=== PATIENT | female | born 1960 | race Caucasian/White ===

== ENCOUNTER 2019-11-09 12:41 | Observation (INO) | payer BC, SELFPAY ==
[~2019-11-09 12:41] MED LIST: Iopamidol-370 76% 500 ML 1 ML ONE
[2019-11-09 12:56] LABS: #Basophils 0.1 thou/uL (0.0-0.2); #Eosinphils 0.1 thou/uL (0.0-0.7); #Lymphocytes 2.1 thou/uL (1.20-3.40); #Monocytes 0.5 thou/uL (0.11-0.59); #Neutrophils 2.6 thou/uL (1.40-6.50); %Basophils 2.6 % (0.0-1.0); %Eosinophils 1.6 % (0.0-10.0); %Lymphocytes 38.9 % (21.0-51.0); %Monocytes 8.4 % (0.0-10.0); %Neutrophils 48.5 % (42.0-75.0); Hemoglobin 14.9 g/dL (12.0-16.0); Mean Corpuscular HGB CONC 31.4 g/dL (32.0-36.0); Mean Corpuscular Hemoglobin 29.2 pg (27.0-31.0); Mean Corpuscular Volume 92.8 fL (78.0-98.0); Mean Platelet Volume 7.4 fL (7.4-10.4); Platelet Count 272 thou/uL (130-400); RBC Distribution Width 12.2 % (11.5-14.5); Red Blood Cell (RBC) Count 5.12 mill/uL (4.20-5.40); White Blood Cell (WBC) Count 5.4 thou/uL (4.8-10.8)
[2019-11-09] MEDS ORDERED: Lorazepam 2 MG/ML VIAL ONE (13:08)
--- NOTE | 2019-11-09 13:08 | CT ---
BRAIN CT WITHOUT IV CONTRAST: History: Confusion, stroke alert. FINDINGS: No focal mass or midline shift. No intra or extraaxial hemorrhage. Sinuses and mastoids are clear. IMPRESSION: No acute intracranial process. No mass or bleed. Findings discussed with Dr. Blas in the Emergency Department at 12:51 p.m. Code CR
[2019-11-09 13:09] LABS: INR-International Normal Ratio 0.9; Prothrombin Time 12.1 sec (12.0-14.7)
[2019-11-09 13:10] LABS: PTT 28.1 sec (22.9-36.1)
--- NOTE | 2019-11-09 13:11 | RAD ---
Chest one view HISTORY: Altered mental status. Dyspnea. FINDINGS: No comparison. Cardiac silhouette is magnified by projection. Pulmonary vasculature is unre markable. Oval density at the right hilum has the appearance of the pulmonary artery. No lobar consolidation or evidence of pneumothorax. IMPRESSION : No active cardiopulmonary abnormalities are demonstrated.
[2019-11-09 13:12] LABS: ALT (SGPT) 17 U/L (8-55); AST (SGOT) 25 U/L (5-34); Albumin 4.6 g/dL (3.5-5.0); Alkaline Phosphatase 94 U/L (40-110); Anion Gap 17 mmol/L (10-20); BUN (Urea Nitrogen) 16 mg/dL (9.8-20.1); Bilirubin, Total 0.4 mg/dL (0.2-1.2); CK (CPK) 79 U/L (29-168); Calc. Creatinine Clearance 0 mL/min (70-130); Calcium 10.2 mg/dL (7.8-10.44); Carbon Dioxide 21 mmol/L (22-29); Chloride 105 mmol/L (98-107); Estimated GFR-MDRD 70; Globulin 3.1 g/dL (2.4-3.5); Glucose 103 mg/dL (70-105); Lipase 59 U/L (8-78); Potassium 3.9 mmol/L (3.5-5.1); Protein, Total 7.7 g/dL (6.0-8.3); Sodium 139 mmol/L (136-145)
--- NOTE | 2019-11-09 13:16 | CT ---
CT ANGIOGRAM HEAD WITH 3D RENDERING CT ANGIOGRAM NECK WITH 3D RENDERING: History: Confusion. Stroke alert. FINDINGS: CT ANGIOGRAM HEAD WITH 3D RENDERING: There is no evidence for major branch occlusion. The M1 segments are normal bilaterally. Intracranial vertebral basilar arteries are unremarkable. No evidence for intracranial aneurysm. IMPRESSION: Unremarkable head CTA. No major branch occlusion. No M1 segment occlusion. CT ANGIOGRAM NECK WITH 3D RENDERING: The origins of the right and left common carotid arteries and vertebral arteries are unremarkable. No evidence for any significant stenosis. The bifurcation regions and internal carotid arteries are unr emarkable bilaterally. Visualized soft tissue neck appears unremarkable. IMPRESSION: Unremarkable neck CTA. No evidence for significant stenosis using NASCET criteria or evidence for occ lusion or other acute process. Findings discussed with Dr. Blas in the Emergency Department at 1311 hours. Code CR
[2019-11-09] MEDS ORDERED: Aspirin Chewable 81 MG TAB ONE (13:23)
[2019-11-09 14:15] LABS: Bilirubin Negative (Negative); Blood, Urine Negative (Negative); Clarity Clear (Clear); Glucose, Urine (Dipstick) Normal (Negative); Leukocyte Negative Leu/uL (Negative); Nitrite Negative (Negative); Protein, Urine (Dipstick) Negative (Neg-Trace); Urobilinogen Normal mg/dL (Less than 2)
[2019-11-09 14:25] LABS: Amphetamine Not Detected (NotDetected); Barbiturates Screen Not Detected (NotDetected); Benzodiazepine Screen Not Detected (NotDetected); Cocaine Metabolite Screen Not Detected (NotDetected); Medtox Control Line Valid? VALID (VALID); Medtox Reader # READER 4; Methadone Not Detected (NotDetected); Methamphetamine Not Detected (NotDetected); Opiate Screen Not Detected (NotDetected); Oxycodone Screen Not Detected (NotDetected); Phencyclidine (PCP) Not Detected (NotDetected); THC/Cannabinoid Screen Not Detected (NotDetected); Tricyclic Screen Not Detected (NotDetected)
[2019-11-09 14:30] LABS: Acetaminophen Less than 6.0 mcg/mL (10.0-30.0); Alcohol Less than 10 mg/dL (Less than 10); Salicylate Less than 8.0 mg/dL (15.0-30.0)
[2019-11-09] MEDS ORDERED: Ondansetron PF 4 MG/2 ML Vial IVP PRN ×2 (16:18→16:39)
[2019-11-09] MEDS ORDERED: Ondansetron ODT 4 MG TAB SL PRN (16:18)
[2019-11-09 16:36] VITALS: BMI 31.6
[2019-11-09] MEDS ORDERED: Ondansetron ODT 4 MG TAB PO PRN (16:39)
[2019-11-09] MEDS ORDERED: Acetaminophen 500 MG TAB PO PRN (16:39)
[2019-11-09] MEDS: Sodium Chloride 0.9% 1,000 ML IV SCH (17:38)
[2019-11-09] MEDS: Famotidine 20 MG TAB PO SCH (20:42)
[2019-11-09] MEDS ORDERED: Atorvastatin Calcium 40 MG TAB PO SCH (21:00)
[2019-11-09] MEDS ORDERED: PYRIDOXINE HCL PO SCH (21:00)
[2019-11-09] MEDS ORDERED: MELATONIN PO SCH (21:00)
[2019-11-09] MEDS ORDERED: Melatonin 3 MG TAB PO SCH (21:30)
[2019-11-09] MEDS ORDERED: Loratadine 10 MG TAB PO SCH (21:30)
--- NOTE | 2019-11-09 22:36 | HP ---
PRIMARY CARE PROVIDER: Dr. Springer with [facility]. CHIEF COMPLAINT: Confusion. HISTORY OF PRESENT ILLNESS: This is a 59-year-old female, who presented to [facility] Emergency Department after apparent altered mentation and confusion, was noted by patient's daughter while on the phone. The daughter last talked to the patient approximately noon on 11/09/2019, and noticed that the patient did not sound appropriate. The patient is normally active, works at a local [employer] company, and is able to manage all finances, and live independently in the [place], [place] area. The patient states she has no recollection of the last 48 hours and is unclear what she has been doing at her home. The patient denied any recent travel history, ingestion of illicit drugs, alcohol use, or new medication exposure. The family became concerned that the patient's confusion and altered mentation. At which point, EMS personnel was notified. The patient denied any suicidal or homicidal ideation, recent fall, injury, or head trauma. The patient denied any fever, chills, nausea, vomiting, or diarrhea. The patient denied any localizing weakness of her extremities, difficulty with speech or vision. Initial evaluation in the emergency room including CT of the brain was unremarkable. Screening metabolic survey was essentially unremarkable, and EKG showed sinus bradycardia. The patient was noted with emotional lability in the emergency room with tearfulness and confusion about why she was in the emergency room. The patient continues to ask what day it is despite being told the appropriate day of the week. PAST MEDICAL HISTORY: 1. Hypothyroidism. 2. Seasonal allergies. 3. Anxiety. PAST SURGICAL HISTORY: 1. Status post gastric bypass. 2. Status post cholecystectomy. CURRENT MEDICATIONS: Accurate home medication list being acquired by family members. ALLERGIES: TO SULFA. FAMILY HISTORY: No inheritable diseases per patient report. SOCIAL HISTORY: Single. Resides in [place], [place]. Employed at a local [employer] company. No current alcohol, tobacco, or illicit drug use. Functional of all activities of daily living including driving. Manages own finances. Children in the local area. REVIEW OF SYSTEMS: CONSTITUTIONAL: Negative for weight loss or gain, ability to conduct usual activities. SKIN: Negative for rash, itching. EYES: Negative for double vision, pain. ENT/MOUTH: Negative for nose bleeding, neck stiffness, pain, tenderness. CARDIOVASCULAR: Negative for palpitations, dyspnea on exertion, orthopnea. RESPIRATORY: Negative for shortness of breath, wheezing, cough, hemoptysis, fever or night sweats. GASTROINTESTINAL: Negative for poor appetite, abdominal pain, heartburn, nausea, vomiting, constipation, or diarrhea. GENITOURINARY: Negative for urgency, frequency, dysuria, nocturia. MUSCULOSKELETAL: Negative for pain, swelling. NEUROLOGIC/PSYCHIATRIC: Negative for anxiety, depression. ALLERGY/IMMUNOLOGIC: Negative for skin rash, bleeding tendency. Otherwise negative except as stated per HPI. PHYSICAL EXAMINATION: VITAL SIGNS. On admission, blood pressure 156/86, pulse 59, respiratory rate 18, temperature 97.8 degrees Fahrenheit, O2 saturation 100% on room air. GENERAL APPEARANCE: This is a 59-year-old female, alert and oriented x3, pleasant, responsive, in no acute distress. HEENT: Pupils are equal, round, reactive to light and accommodation. Extraocular muscles are intact. No scleral icterus. No conjunctival injection. Nares are patent. OP is clear. Teeth in good repair. No oral or glossal trauma noted. NECK: Supple. No cervical adenopathy. No thyromegaly. No carotid bruits. No JVD appreciated. Cervical spine with full active and passive range of motion. No meningeal signs noted. CHEST: Lungs are clear to auscultation bilaterally. CARDIOVASCULAR: S1 and S2 without noted murmur, rub, or gallop. ABDOMEN: Rounded, soft, nontender, and nondistended. Bowel sounds are positive in all 4 quadrants. There is no hepatosplenomegaly. No abdominal bruits. No rebound or guarding appreciated. EXTREMITIES: Warm and dry with fair turgor. No clubbing, cyanosis, or asymmetric edema appreciated. Pulses palpable distally at the dorsalis pedis, posterior tibial, and popliteal arteries bilaterally. Capillary refill less than 2 seconds. NEUROLOGIC: Cranial nerves 2 through 12 are grossly intact. No focal or lateralizing signs appreciated. Alert and oriented x3. Missed a day of week on exam. Not observed ambulatory during this exam. PERTINENT LABORATORY AND X-RAY FINDINGS: Complete metabolic profile within normal limits. Troponin I negative x1. Ammonia 17. Total CK 79. BNP 53. TSH 0.998. CBC within normal limits. PT 12.1, INR 0.9, PTT 28.1. Urinalysis negative. Urine drug screen dated 11/09/2019, negative. Plasma alcohol level less than 10. CT of the brain without contrast dated 11/09/2019, showed no acute intracranial process. CT angiogram of the head and neck dated 11/09/2019, showed no hemodynamically significant stenosis. EKG dated 11/09/2019, by my interpretation shows sinus bradycardia with heart rates in the 50s, attenuated R-waves noted in the precordial leads, T-wave inversion in leads III and F and leads V2 through V4. ASSESSMENT AND PLAN: 1. Transient ischemic attack. The patient will be observed on the stroke unit. We will obtain MRI imaging of the brain to further rule out evidence of acute infarct. Initial CT imaging of the brain unremarkable. Unclear presentation with acute confusional state as a differential diagnosis. Continue general stroke protocol until MRI reviewed. Check fasting lipid profile. Continue aspirin 81 mg daily. 2. Acute confusional state. Etiology unclear. Urine drug screen negative. We will continue to monitor mental status on a serial basis. 3. Metabolic encephalopathy, suspected. See #1 and #2 above. Continue supportive management and monitor clinical response. 4. Hypothyroidism. Confirm home Synthroid dose. Initial TSH unremarkable. 5. Prophylaxis. Sequential compression devices while in bed. Pepcid 20 mg p.o. b.i.d. 6. Code status, full. Surrogate medical decision maker is the patient's daughter. Job ID: [id number]
[2019-11-10 05:21] LABS: Anion Gap 10 mmol/L (10-20); BUN (Urea Nitrogen) 12 mg/dL (9.8-20.1); Calc. Creatinine Clearance 126 mL/min (70-130); Calcium 8.7 mg/dL (7.8-10.44); Carbon Dioxide 26 mmol/L (22-29); Cardiac Risk 3.1 (Less than 4.5); Chloride 108 mmol/L (98-107); Cholesterol 172 mg/dl (< 200 Desired); Estimated GFR-MDRD 80; Glucose 87 mg/dL (70-105); HDL Cholesterol 56 mg/dL (>60 Neg Risk); LDL Cholesterol, Calculated 101 mg/dL; Potassium 3.9 mmol/L (3.5-5.1); Sodium 140 mmol/L (136-145); Triglycerides 77 mg/dL (Less than 150)
[2019-11-10 05:43] LABS: Band 3 % (5-11); Eosinophils 2 % (0-10); Lymphocytes 33 % (21-51); MDiff Complete? YES; Mean Corpuscular HGB CONC 31.5 g/dL (32.0-36.0); Mean Corpuscular Hemoglobin 29.9 pg (27.0-31.0); Mean Corpuscular Volume 94.8 fL (78.0-98.0); Mean Platelet Volume 7.3 fL (7.4-10.4); Monocytes 7 % (0-10); Neutrophil 51 % (42-75); Platelet Count 204 thou/uL (130-400); RBC Distribution Width 12.2 % (11.5-14.5); Reactive Lymphocytes 4 % (0-10); Red Blood Cell (RBC) Count 4.36 mill/uL (4.20-5.40); White Blood Cell (WBC) Count 5.5 thou/uL (4.8-10.8)
--- NOTE | 2019-11-10 08:41 | MRI ---
Exam: Brain MRI without contrast HISTORY: Transient ischemic attack. Altered mental status. COMPARISON: None FINDINGS: Calvarial marrow signal intensity: Appropriate T1 signal Gradient echo sequence: No hemorrhage Brain parenchyma: No mass, mass effect or midline shift. Brain volume, age-appropriate. Cortical andre-white matter differentiation: Preserved Restricted diffusion: Central arterial flow voids are maintained. Absent restricted diffusion White matter signal intensities: No significant T2 or FLAIR white matter hyperintensities. Sinuses: Adequate aeration of the paranasal sinuses and mastoid air cells. IMPRESSION: 1. Absent restricted diffusion. No acute infarct.
[2019-11-10] MEDS: Famotidine 20 MG TAB PO SCH (08:42)
[2019-11-10] MEDS: Sodium Chloride 0.9% 1,000 ML IV SCH (08:49)
[2019-11-10] MEDS ORDERED: Escitalopram Oxalate 10 mg Tablet PO SCH (09:00)
[2019-11-10] MEDS ORDERED: Cyanocobalamin (Vitamin B-12) 1,000 MCG TAB PO SCH (09:00)
[2019-11-10] MEDS ORDERED: Loratadine 10 MG TAB PO SCH ×2 (09:00→21:00)
[2019-11-10] MEDS ORDERED: Aspirin 81 mg Enteric Coated Tablet PO SCH (09:00)
--- NOTE | 2019-11-10 13:29 | CON ---
DATE OF CONSULTATION: 11/10/2019 REASON FOR CONSULTATION: Altered mental status. HISTORY OF PRESENT ILLNESS: Ms. Ash is a 59-year-old female, who presented to the [facility] after having an episode of altered mental status yesterday. The history is taken from the daughter since the patient does not recall anything. Per daughter, around noon, she noted that she was confused and not acting appropriately. The patient at baseline, is extremely active and works at the local [employer] company and manages her finances and lives independently. The daughter also noticed that she has left-sided weakness and the confusion which lasted until last night. The daughter denies any abnormal movements or twitching, and the patient did not complain of any twitching, abdominal pain, headache, dizziness, vertigo, associated with nausea, vomiting, fever, chills, associated with the confusion. The confusion resolved this morning and the patient is not back to the baseline. In the emergency room, head CT was done, which was unremarkable and did not reveal any acute intracranial pathology. CTA of the head and neck was also unremarkable and did not reveal any hemodynamically significant stenosis or aneurysm. REVIEW OF SYSTEMS: All systems were reviewed and were negative except the pertinent positives, negatives mentioned in the HPI. PAST MEDICAL HISTORY: 1. Anxiety. 2. Seasonal allergies. 3. Hypothyroidism. PAST SURGICAL HISTORY: 1. Status post gastric bypass. 2. Status post cholecystectomy. ALLERGIES: ALLERGIES TO SULFA DRUGS. FAMILY HISTORY: No family history of stroke. SOCIAL HISTORY: The patient is single. 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 She lives independently and denies smoking, alcohol, or illegal drug use. MEDICATIONS: She does not take aspirin PHYSICAL EXAMINATION: VITAL SIGNS: Blood pressure 150/80, pulse 80, respiratory rate 18. GENERAL APPEARANCE: A 59-year-old female in no acute distress. HEENT: Normocephalic and atraumatic. NECK: Supple. CHEST: Clear. CARDIOVASCULAR: Regular rate and rhythm. ABDOMEN: Soft. NEUROLOGICAL: Mental status; the patient is alert and oriented to person, place , and time. She follows commands appropriately. Speech is clear. Cranial nerves 2 through 12 intact. Motor; muscle tone and bulk are normal. Strength 5/5 bilaterally. Sensory intact. Reflexes 2+ bilaterally. Gait within normal limits. DATA REVIEWED: I reviewed the CT of the head, which was unremarkable. I also reviewed the CT angiogram of the head and neck, which did not reveal any acute hemodynamically significant stenosis. ASSESSMENT AND PLAN: Ms. Ash is a 59-year-old female, who presented with confusion and left-sided weakness, which has now resolved and she is back to her baseline. MRI of the brain reviewed, which did not reveal any acute intracranial pathology, most likely transient ischemic attack. CT angiogram of the head and neck reviewed, which did not reveal any acute hemodynamically significant stenosis or aneurysm. Check fasting lipid profile, TSH, and hemoglobin A1c. Strict control of the blood pressure and blood glucose. Neuro checks every 4 hours. Continue home medications. Continue aspirin and statin for secondary stroke prevention. 2D echocardiography completed, results pending to rule out cardioembolic source. Telemetry. Continue home medications. Continue medical management per primary team. We will continue to follow. Thank you for the consultation. Job ID: [id number] SANDRA
[2019-11-10 15:50] VITALS: BP 134/81; TEMP 97.7
[2019-11-10] MEDS ORDERED: Melatonin 3 MG TAB PO SCH (21:00)
--- NOTE | 2019-11-11 03:34 | DIS ---
DATE OF ADMISSION: 11/09/2019 DATE OF DISCHARGE: 11/10/2019 DISCHARGE DIAGNOSES: 1. Acute confusional state, unclear etiology. 2. Metabolic encephalopathy, unclear etiology. 3. Hypothyroidism, stable. CONSULTATIONS: Dr. Bowling with Neurology Service. PERTINENT LABORATORY AND X-RAY FINDINGS: Complete metabolic profile within normal limits. Troponin I negative x1. BNP 53. TSH is 0.998. Total cholesterol 172, triglyceride 77, HDL 56, LDL 101. Serum ammonia level 17. CBC within normal limits. Urinalysis negative. Urine drug screen dated 11/09/2019, negative. Plasma alcohol level less than 10. CT of the brain without contrast dated 11/09/2019 showed no acute intracranial process. CT angiogram of the head and neck dated 11/09/2019 showed no hemodynamically significant stenosis. Portable chest x-ray dated 11/09/2019 showed no acute cardiopulmonary process. MRI of the brain dated 11/10/2019 showed no acute infarct. 2D transthoracic echocardiogram dated 11/10/2019, pending at the time of this dictation. HOSPITAL COURSE: The patient was observed on the Stroke Unit after initially presenting with acute confusional state with altered mentation with initial concern for potential TIA versus CVA. The patient underwent general stroke protocol including CT and MRI imaging of the brain showing no acute process. Stroke workup was essentially unrevealing as to the exact etiology and the patient was evaluated by the Neurology Service with recommendations for supportive management. The patient's symptoms improved in less than 24 hours with the confusion remaining unclear as to etiology. Telemetry monitoring showed sinus bradycardia without acute arrhythmia and overall vital signs remained stable. I have examined the patient at the time of discharge and discussed followup instructions. The patient verbalized understanding and agreement, ready for discharge on 11/10/2019. DISCHARGE MEDICATIONS: 1. Enteric-coated aspirin 81 mg p.o. daily. 2. Lipitor 40 mg p.o. at bedtime. 3. [place] Thyroid 90 mg p.o. daily. 4. Melatonin/pyridoxine 3 mg/10 mg one tablet p.o. at bedtime. 5. Lexapro 5 mg p.o. daily. 6. Vitamin B12 of 1000 mcg p.o. daily. 7. Zyrtec 10 mg p.o. daily. FOLLOWUP: The patient may follow up with her primary care provider, Dr. Jay Springer within 7 days of discharge. CONDITION ON DISCHARGE: Stable. ACTIVITY: Ad-dinah. DIET: Heart healthy. CODE STATUS: Full. DISPOSITION: Home on 11/10/2019. Job ID: [id number]
== END 2019-11-10 17:58 | disposition home or self-care (01) ==
LOC: ERS 12:41 → 2SE 14:00
PROVIDERS: ADMIT Family Medicine; ATTEND Family Medicine
DX: G93.41 Metabolic encephalopathy (principal); E03.9 Hypothyroidism, unspecified; J30.2 Other seasonal allergic rhinitis; F41.9 Anxiety disorder, unspecified; Z79.899 Other long term (current) drug therapy; Z88.2 Allergy status to sulfonamides; Z98.84 Bariatric surgery status
CPT/HCPCS: 36415; 36416; 70450; 70496; 70498; 70551; 71045; 80048; 80053; 80061; 80306; 80307; 81003; 82140; 82550; 83690; 83880; 84443; 84484; 85007; 85025; 85027; 85610; 85730; 93005; 93306; 96361; 96374; G0378; J2060; Q9967